=== PATIENT | male | born 1960 | race Caucasian/White ===

== ENCOUNTER 2019-05-18 07:25 | Outpatient (CLI) | payer OTHER ==
--- NOTE | 2019-05-19 02:49 | MRI Report ---
Reason: LOW BACK PAIN, PAIN IN THORACIC SPINE Procedure Date: 05/18/2019 Accession Number: [id number] / [id number] Procedure: MRI - Thoracic Spine W/O CPT Code: FULL RESULT: EXAM: MRI THORACIC SPINE WITHOUT CONTRAST. EXAM DATE: 05/18/2019 08:24 AM. CLINICAL HISTORY: Low back pain, pain in thoracic spine. COMPARISONS: None. TECHNIQUE: Multiplanar, multisequence T1-weighted and fluid-sensitive sequences of the thoracic spine from C7 to L1 without contrast. Other: None. FINDINGS: Spinal Canal: No signal abnormality in the visualized spinal cord. Alignment: There is no spondylolisthesis. Bone Marrow: Small acute Schmorl's node are noted at the superior T6, superior T10, and inferior T11 endplates. Small chronic Schmorl's nodes are noted from T7-T8 through T12-L1. Disk Levels/Facets: Mild disk height loss is noted at all thoracic levels. No significant disk bulge or herniation is identified. There is no spinal canal or foraminal stenosis. Musculature: There is mild diffuse fatty atrophy of the posterior paraspinal muscles without intramuscular edema. Other: The visualized lungs, mediastinum, and abdominal cavity are unremarkable. IMPRESSION: 1. Normal thoracic spinal cord signal intensity. 2. Small acute Schmorl's nodes are noted at the superior T6, superior T10, and inferior T11 endplates. 3. Mild multilevel degenerative changes are present without spinal canal or foraminal stenosis. RADIA
--- NOTE | 2019-05-19 02:50 | MRI Report ---
Reason: LOW BACK PAIN, PAIN IN THORACIC SPINE Procedure Date: 05/18/2019 Accession Number: [id number] / [id number] Procedure: MRI - Lumbar Spine W/O CPT Code: FULL RESULT: EXAM: MRI LUMBAR SPINE WITHOUT CONTRAST. EXAM DATE: 05/18/2019 08:40 AM. CLINICAL HISTORY: Low back pain, pain in thoracic spine. COMPARISON: None. TECHNIQUE: Multiplanar, multisequence T1-weighted and fluid-sensitive sequences of the lumbar spine from T12 to S1 without contrast. Other: None. FINDINGS: Spinal Canal: The conus terminates at L1. The conus medullaris and cauda equina are unremarkable. Alignment: There is no spondylolisthesis. Bone Marrow: Five [id number] lumbar vertebral bodies are assumed. No abnormal bone marrow edema is identified. Small chronic Schmorl's nodes are noted at all lumbar levels. Disk Levels/Facets: T12-L1: Unremarkable. L1-L2: Mild left facet arthropathy is present without spinal canal or foraminal stenosis. L2-L3: Mild bilateral facet arthropathy is present without spinal canal or foraminal stenosis. L3-L4: Left facet arthropathy is present with fluid in the left facet joint. Superimposed disk height loss results in mild bilateral foraminal narrowing. The spinal canal is patent. L4-L5: A disk bulge is present with a tiny central protrusion. Facet arthropathy and ligamentum flavum infolding are also present but no spinal canal stenosis is seen. There is mild bilateral foraminal nearing. L5-S1: Disk height loss and bilateral facet arthropathy results in mild bilateral foraminal narrowing. The spinal canal is patent. Musculature: Normal. No edema or fatty atrophy. Other: The partially visualized retroperitoneum is unremarkable. IMPRESSION: 1. Normal conus medullaris and cauda equina. 2. No abnormal bone marrow edema. 3. Mild multilevel degenerative changes are present without high-grade spinal canal or foraminal stenosis. Comment: The following findings are so common in adults without low back pain that while we report their presence, they must be interpreted with caution and in the context of the clinical situation. (Reference Vic et al, Spine 2001) Prevalence of findings in patients without low back pain: Disk degeneration (any evidence): 92% Disk desiccation/T2 signal loss: 83% Disk height loss: 56% Disk bulge: 64% Disk protrusion: 32% Annular tear/high intensity zone: 38% RADIA
== END 2019-05-18 07:26 | disposition home or self-care (01) ==
LOC: DI 07:25
PROVIDERS: ATTEND Internal Medicine
DX: M47.816 Spondylosis without myelopathy or radiculopathy, lumbar region (principal); M51.26 Other intervertebral disc displacement, lumbar region; M47.817 Spondylosis without myelopathy or radiculopathy, lumbosacral region; M51.36 Other intervertebral disc degeneration, lumbar region; M51.37 Other intervertebral disc degeneration, lumbosacral region; M48.07 Spinal stenosis, lumbosacral region
CPT/HCPCS: 72146; 72148